=== PATIENT | male | born 1995 | race Caucasian/White ===

== ENCOUNTER 2016-10-13 03:42 | Emergency (ER) | payer OTHER ==
--- NOTE | 2016-10-13 04:03 | ER Document Report ---
ED General - General Stated Complaint: ETOH, PSYCH EVAL Notes: Patient is a 21-year-old male who is brought in by paramedics. He is an [employer]. Patient apparently drink alcohol. He became very aggressive. He was trying to jump off the balcony. According to the report he was time bystanders that he was suicidal. When he moves crew tried to bring him to the hospital he started to swing and punch obtain months croup. They sedated him with Haldol and Versed. He was then brought here. Currently patient is sedated and cannot give me any further information. Past Medical History - Social History Smoking Status: Unknown if Ever Smoked Frequency of alcohol use: unknown Drug Abuse: Other - unknown Family History: Other - unknown Review of Systems - Review of Systems -: Yes ROS unobtainable due to patient's medical condition - Patient is medically sedated Physical Exam - Notes Notes: General Appearance: Sedated. Vitals: reviewed, See vital signs table. Head: no swelling or tenderness to the head Eyes: PERRL, EOMI, Conjuctiva clear Mouth: No decreasd moisture Throat: No tonsillar inflammation, No airway obstruction, No lymphadenopathy Neck: Supple Lungs: No wheezing, No rales, No rhonci, No accessory muscle use, good air exchange bilaterally. Heart: Normal rate, Regular rythm, No murmur, no rub Abdomen: Normal BS, soft, No rigidity, No abdominal tenderness, No guarding, no rebound, no abdominal masses, no organomegaly Extremities: strength 5/5 in all extremities, good pulses in all extremities, no swelling or tenderness in the extremities, no edema. Skin: warm, dry, appropriate color, no rash Neuro: Sedated. Unable to answer questions at this time. Pupils are equal and reactive. Gag reflex intact. Course - Re-evaluation Re-evalutation: 10/13/16 06:15 Patient is arousable. He does admit that he was trying to jump off the balcony. He will not tell me why. He would not give him a whole lot information at this time. Patient is medically stable for psychiatric evaluation. Being that the paramedics report that he was making suicidal comments and also because he tried to jump off the balcony I did place him on involuntary commitment paperwork. Dictation of this chart was performed using voice recognition software; therefore, there may be some unintended grammatical errors. 02/25/17 06:16 - Laboratory Result Diagrams: 10/13/16 05:15 10/13/16 05:15 Laboratory results interpreted by me: 10/13/16 10/13/16 05:15 05:25 Sodium 150.2 H Chloride 108 H BUN 6 L Urine Ascorbic Acid 20 H Salicylates < 1.0 L Acetaminophen < 10 L - EKG Interpretation by Me Additional EKG results interpreted by me: 10/13/16 05:20 EKG is reviewed and interpreted by me. EKG shows normal sinus rhythm with rate of [address] segment elevation or depression. No ischemic to inversions. PA level, QRS duration, QTC intervals are within normal range. No old EKG available for comparison.
[2016-10-13 05:29] LABS: ABSOLUTE EOSINOPHILS # (AUTO) 0.2 10^3/uL (0.0-0.6); ABSOLUTE LYMPHOCYTES (AUTO) 1.3 10^3/uL (0.5-4.7); ABSOLUTE MONOCYTES (AUTO) 0.4 10^3/uL (0.1-1.4); ABSOLUTE NEUT (AUTO) 3.2 10^3/uL (1.7-8.2); EOSINOPHILS % (AUTO) 3.3 % (0-6); HEMATOCRIT 39.7 % (37.9-51.0); HEMOGLOBIN 13.7 g/dL (13.5-17.0); HGB HCT DIFFERENCE 1.4; LYMPHOCYTES % (AUTO) 24.8 % (13-45); MEAN CORPUSCULAR HEMOGLOBIN 30.8 pg (27.0-33.4); MEAN CORPUSCULAR HGB CONC 34.4 g/dL (32.0-36.0); MEAN CORPUSCULAR VOLUME 90 fl (80-97); MONOCYTES % (AUTO) 8.4 % (3-13); RED BLOOD COUNT 4.44 10^6/uL (4.35-5.55); SEGMENTED NEUTROPHILS % (AUTO) 62.5 % (42-78); WHITE BLOOD COUNT 5.2 10^3/uL (4.0-10.5)
[2016-10-13 05:44] LABS: ALANINE AMINOTRANSFERASE 27 U/L (21-72); ALBUMIN 4.6 g/dL (3.5-5.0); ALCOHOL 175 mg/dL (NONE DETECTED); ALKALINE PHOSPHATASE 47 U/L (38-126); ANION GAP 12 (5-19); ASPARTATE AMINO TRANSFERASE 24 U/L (17-59); BILIRUBIN,TOTAL 0.4 mg/dL (0.2-1.3); BLOOD UREA NITROGEN 6 mg/dL (7-20); CARBON DIOXIDE 30 mmol/L (22-30); CHLORIDE 108 mmol/L (98-107); CREATININE RESULT 0.69 mg/dL (0.52-1.25); GLUCOSE 101 mg/dL (75-110); SODIUM 150.2 mmol/L (137-145); TOTAL PROTEIN 7.1 g/dL (6.3-8.2)
[2016-10-13 05:54] LABS: APPEARANCE,URINE CLEAR; BILIRUBIN,URINE NEGATIVE (NEGATIVE); GLUCOSE, URINE NEGATIVE (NEGATIVE); KETONES,URINE NEGATIVE (NEGATIVE); LEUKOCYTE ESTERASE,URINE NEGATIVE (NEGATIVE); NITRITE,URINE NEGATIVE (NEGATIVE); PROTEIN,URINE NEGATIVE (NEGATIVE); URINE SPECIFIC GRAVITY 1.003; UROBILINOGEN,URINE NEGATIVE mg/dL (<2.0)
[2016-10-13 06:02] LABS: URINE BARBITURATES SCREEN NEGATIVE; URINE METHADONE SCREEN NEGATIVE; URINE OPIATES LOW NEGATIVE; URINE PHENCYCLIDINE SCREEN NEGATIVE
--- NOTE | 2016-10-13 08:38 | PSYCHOLOGICAL NOTE ---
Psych Note - Psych Note Psych Note: Patient presented to [facility] ED under the influence of ETOH with suicidal ideation and gesture. Patient allegedly attempted to jump of a balcony. Patient is under IVC and is an [employer] duty [employer]. Contact with base officials has been made to ensure proper placement and transportation will occur to [facility] ED.
--- NOTE | 2016-10-13 09:39 | ER Document Report ---
Doctor's Note Notes: 10/13/16 09:37 Rounds: Assumed care of patient. Review of chart says patient was drinking heavily last evening and threatened to jump off a balcony. Behavior became very aggressive and difficult to control. EMS was called to transport patient to the emergency department. Patient was sedated in route. Evaluating patient this morning, he is calm and cooperative and denies feeling suicidal today. He relates that he does have a history of depression and is currently on Prozac and Seroquel. Vital signs are all normal. Labs were essentially normal except for blood alcohol of 175. Patient was involuntarily committed. I spoke with Dr. Escobedo at the [facility] ED and patient is going to be transferred to the ED at the [facility] at [facility] Daniela Crockett M.D. 10/13/16 11:10 Patient's transport is here. Reassessed patient. He is standing and walking without difficulty. Stable for transfer. Daniela Crockett M.D.
[2016-10-13 11:13] VITALS: BP 110/66
--- NOTE | 2016-10-13 19:29 | EKG REPORT ---
SEVERITY:- NORMAL ECG - SINUS RHYTHM : Confirmed by: Domenica Espinoza MD 13-Oct-2016 19:28:32
== END 2016-10-13 11:22 | disposition other institution (70) ==
LOC: ER 03:42
DX: R45.851 Suicidal ideations (principal); F10.10 Alcohol abuse, uncomplicated
CPT/HCPCS: 36415; 80053; 80307; 81001; 85025; 93005; 93010; 99285